=== PATIENT | female | born 1985 | race Caucasian/White ===

== ENCOUNTER 2019-08-06 20:33 | Emergency (ER) | payer BC, OTHER ==
[2019-08-06 20:39] VITALS: BP 114/57; PULSE 81; TEMP 98.6; BMI 24.5
--- NOTE | 2019-08-06 20:49 | PDOC ---
History of Present Illness - General Chief Complaint: Cold Symptoms Stated Complaint: 15 WK WI/FLU SYMPTOMS Time Seen by Provider: 08/06/19 20:49 History Source: Patient - History of Present Illness Initial Comments: 08/06/19 21:41 Chief complaint: Flu symptoms Patient is a 34-year-old female, no significant medical problems who is 15 weeks with 1 day of flu symptoms and low-grade fever and cough. No vomiting. No dysuria. GENERAL/CONSTITUTIONAL: No fever, weakness. dizziness HEAD, EYES, EARS, NOSE AND THROAT: No change in vision. No ear pain or discharge. + sore throat. CARDIOVASCULAR: No chest pain RESPIRATORY: No shortness of breath, +cough GASTROINTESTINAL: No pain, nausea, vomiting, diarrhea or constipation GENITOURINARY: No dysuria MUSCULOSKELETAL: No neck or back pain SKIN: No rash NEUROLOGIC: No headache, vertigo, loss of consciousness, or loss of sensation. GENERAL: The patient is awake, alert, and fully oriented, in no acute distress. HEAD: Normal with no signs of trauma. EYES: Pupils equal, round and reactive to light, sclera anicteric, conjunctiva clear. ENT: pharynx: no erythema, no exudate, uvula midline NECK: supple CHEST: clear, nontender, rr ABD: soft, nontender BACK: no tenderness or signs of injury EXTREMITIES: Normal range of motion, no edema. NEUROLOGICAL: Normal speech, normal gait. SKIN: Warm, Dry Past History - Past Medical History Allergies/Adverse Reactions: Allergies Allergy/AdvReac Type Severity Reaction Status Date / Time No Known Allergies Allergy Verified 08/06/19 20:39 COPD: No - Psycho Social/Smoking Cessation Hx Smoking History: Never smoked *Physical Exam - Vital Signs Last Vital Signs Temp Pulse Resp BP Pulse Ox 98.6 F 81 19 114/57 L 100 08/06/19 20:37 08/06/19 20:37 08/06/19 20:37 08/06/19 20:37 08/06/19 20:37 Medical Decision Making - Medical Decision Making 08/06/19 21:42 Healthy 34-year-old female is 15 weeks with 1 day of flu symptoms, sore throat, low-grade fever, no respiratory distress, no wheezing, patient took medicine prior to coming. Patient works as a nurse practitioner in the hospital. Will send strep and flu. Strep and flu are negative Discussed issues, findings, results, applicable medications and treatments and follow-up. All these were understood and all questions were answered 08/06/19 21:52 Discharge - Discharge Information Problems reviewed: Yes Clinical Impression/Diagnosis: Upper respiratory infection Qualifiers: URI type: unspecified URI Qualified Code(s): J06.9 - Acute upper respiratory infection, unspecified Condition: Stable Disposition: HOME - Admission No - Follow up/Referral - Patient Discharge Instructions Patient Printed Discharge Instructions: DI for Viral Upper Respiratory Infection -- Adult Additional Instructions: Drink 2-3 L of water daily Take Tylenol 650 mg every 4 hours fever and pain Return to the nearest ER if short of breath, unable to swallow or feeling sicker Followup with your doctor in one to 2 days - Post Discharge Activity
== END 2019-08-06 21:59 | disposition home or self-care (01) ==
LOC: JERFT 20:33
DX: O26.892 Other specified pregnancy related conditions, second trimester (principal); J06.9 Acute upper respiratory infection, unspecified; Z3A.15 15 weeks gestation of pregnancy
CPT/HCPCS: 87070; 87804; 87880; 99281-25

== ENCOUNTER 2021-03-23 20:45 | Inpatient (IN) | payer BC, OTHER ==
[2021-03-23] MEDS: ELECTROLYTE-148 SOLN 1,000 ML IV SCH (21:30)
[2021-03-23] MEDS ORDERED: BUTORPHANOL TARTRATE 2 MG/ML VIAL IVPB ONE (21:45)
[2021-03-23] MEDS ORDERED: PROMETHAZINE HCL 25 MG/1 ML VIAL IVPB ONE (21:45)
[2021-03-23] MEDS ORDERED: BUTORPHANOL TARTRATE 2 MG/ML VIAL ONE (22:36)
[2021-03-23] MEDS ORDERED: PROMETHAZINE HCL 25 MG/1 ML VIAL ONE (22:36)
[2021-03-23 22:40] LABS: BASO % 0.3 % (0-2.0); EOS % 0.7 % (0-4.5); HEMATOCRIT 34.7 % (32.4-45.2); LYMPH % 18.1 % (8-40); MCH 29.4 pg (25.7-33.7); MCHC 34.6 g/dl (32.0-36.0); MEAN PLT VOLUME 9.4 fl (7.5-11.1); MONO % 5.8 % (3.8-10.2); NEUT % 75.1 % (42.8-82.8); PLATELET COUNT 196 10^3/uL (134-434); RBC 4.09 M/mm3 (3.60-5.2); RDW 13.1 % (11.6-15.6); WHITE BLOOD COUNT 12.8 K/mm3 (4.0-10.0)
[2021-03-23 22:58] LABS: INR 0.91 (0.83-1.09); PROTHROMBIN TIME (PATIENT) 11.2 SEC (9.7-13.0)
[2021-03-23] MEDS ORDERED: DINOPROSTONE 10 MG VAGINAL SUPPOSITORY VG ONE (23:00)
[2021-03-23 23:09] LABS: CALCIUM 9.3 mg/dL (8.5-10.1)
[2021-03-23 23:10] LABS: BLOOD UREA NITROGEN 15.3 mg/dL (7-18)
[2021-03-23 23:11] VITALS: BMI 31.1
[2021-03-23 23:13] LABS: CREATININE 0.6 mg/dL (0.55-1.3)
[2021-03-23] MEDS ORDERED: PCA PUMP NR ONE (23:24)
[2021-03-23] MEDS ORDERED: FENTANYL/BUPIVACAINE/NS/PF - PCEA - 50 ML DISP.SYRIN EP ONE (23:24)
[2021-03-23] MEDS ORDERED: NALOXONE HCL 0.4 MG/ML VIAL IVPUSH PRN (23:29)
[2021-03-23] MEDS ORDERED: OXYTOCIN 30 UNITS in 0.9% NS 30 UNIT/500 ML INFUS.BAG IVPB SCH (23:30)
[2021-03-23] MEDS ORDERED: FENTANYL/BUPIVACAINE/NS/PF - PCEA - 50 ML DISP.SYRIN EP SCH (23:30)
[2021-03-23] MEDS ORDERED: DEXTROSE 5%-LACTATED RINGERS 1,000 ML IV SCH (23:30)
[2021-03-23] MEDS ORDERED: BUPIVACAINE HCL/PF 0.25% (2.5MG/ML) 10 ML VIAL ONE (23:32)
[2021-03-23 23:37] LABS: SYPHILIS W/ RPR CONF NON-REACTIVE (NONREACTIVE)
[2021-03-24] MEDS: ELECTROLYTE-148 SOLN 1,000 ML IV SCH ×3 (01:15→04:45)
[2021-03-24] MEDS ORDERED: FENTANYL/BUPIVACAINE/NS/PF - PCEA - 50 ML DISP.SYRIN EP ONE (03:37)
[2021-03-24] MEDS ORDERED: BUPIVACAINE HCL/PF 0.25% (2.5MG/ML) 10 ML VIAL ONE ×2 (03:56→04:33)
[2021-03-24] MEDS ORDERED: OXYTOCIN 20 UNITS in 0.9% NS 20 UNIT/1,000 ML INFUS.BAG IV ONE (07:41)
[2021-03-24] MEDS ORDERED: LIDOCAINE HCL 1% PRESERVATIVE FREE - 30ML VIAL ONE (07:41)
[2021-03-24] MEDS: OXYTOCIN 20 UNITS in 0.9% NS 20 UNIT/1,000 ML INFUS.BAG IV SCH (07:52)
[2021-03-24] MEDS ORDERED: OXYTOCIN 30 UNITS in 0.9% NS 30 UNIT/500 ML INFUS.BAG IVPB SCH (08:00)
[2021-03-24] MEDS ORDERED: ACETAMINOPHEN 325 MG TABLET (FP) ONE (08:13)
[2021-03-24] MEDS: ACETAMINOPHEN 325 MG TABLET (FP) PO PRN ×2 (08:15→20:37)
[2021-03-24] MEDS ORDERED: METHYLERGONOVINE MALEATE 0.2 MG/1 ML AMP IM PRN (08:17)
[2021-03-24] MEDS ORDERED: BISACODYL 10 MG SUPP.RECT RC PRN (08:17)
[2021-03-24] MEDS ORDERED: BENZOCAINE 28 GM HEMORRHOIDAL OINTMENT TP PRN (08:17)
[2021-03-24] MEDS ORDERED: oxyCODONE HCL 5 MG TABLET PO PRN (08:17)
[2021-03-24] MEDS ORDERED: WITCH HAZEL 50% (TUCKS) 40 PAD/JAR PAD TP PRN (08:17)
[2021-03-24] MEDS ORDERED: BENZOCAINE 20% 57 GM BOTTLE TP PRN (08:17)
[2021-03-24] MEDS ORDERED: PCA PUMP NR ONE (11:23)
[2021-03-24] MEDS: PRENATAL VITAMINS W/ FOLIC ACID TABLET (FP) PO SCH (12:45)
[2021-03-24] MEDS: IBUPROFEN 600 MG TABLET (FP) PO PRN (20:37)
[2021-03-24] MEDS ORDERED: DOCUSATE SODIUM 100 MG CAPSULE (FP) PO ONE (21:01)
[2021-03-24 22:48] LABS: HIV INTERPRETATION NEGATIVE (NEGATIVE)
[2021-03-25] MEDS: OXYTOCIN 20 UNITS in 0.9% NS 20 UNIT/1,000 ML INFUS.BAG IV SCH (08:36)
[2021-03-25 09:09] LABS: BASO % 0.2 % (0-2.0); EOS % 1.9 % (0-4.5); HEMOGLOBIN 11.5 GM/dL (10.7-15.3); LYMPH % 19.3 % (8-40); MCH 30.2 pg (25.7-33.7); MCHC 34.9 g/dl (32.0-36.0); MEAN CELL VOLUME 86.6 fl (80-96); MEAN PLT VOLUME 9.9 fl (7.5-11.1); MONO % 4.5 % (3.8-10.2); NEUT % 74.1 % (42.8-82.8); PLATELET COUNT 175 10^3/uL (134-434); RBC 3.81 M/mm3 (3.60-5.2); RDW 13.4 % (11.6-15.6); WHITE BLOOD COUNT 9.8 K/mm3 (4.0-10.0)
[2021-03-25] MEDS: PRENATAL VITAMINS W/ FOLIC ACID TABLET (FP) PO SCH (09:18)
[2021-03-25] MEDS ORDERED: SENNOSIDES/DOCUSATE COMBO (SENNA PLUS) TABLET (UD) PO PRN (22:00)
[2021-03-26] MEDS: ACETAMINOPHEN 325 MG TABLET (FP) PO PRN (08:17)
[2021-03-26] MEDS: IBUPROFEN 600 MG TABLET (FP) PO PRN (08:17)
[2021-03-26] MEDS: PRENATAL VITAMINS W/ FOLIC ACID TABLET (FP) PO SCH (11:17)
[2021-03-26 11:41] VITALS: BP 103/63; PULSE 85; TEMP 97.7
== END 2021-03-26 12:10 | disposition home or self-care (01) | DRG 807 ==
LOC: JLDR 20:45 → J3W 03-24 11:01
PROVIDERS: ADMIT Obstetrics & Gynecology; ATTEND Obstetrics & Gynecology
PROC: 10E0XZZ Delivery of Products of Conception, External Approach (ICD-10-PCS; principal; 2021-03-24)
DX: O80 Encounter for full-term uncomplicated delivery (principal); Z37.0 Single live birth; Z3A.39 39 weeks gestation of pregnancy
CPT/HCPCS: 36415; 59409; 80048; 85025; 85610; 85730; 86780; 86850; 86900; 86901; 87389; C9803; U0003; U0005